=== PATIENT | female | born 1985 | race Asian ===

== ENCOUNTER 2019-09-02 12:56 | Outpatient (CLI) | payer BC ==
--- NOTE | 2019-09-02 13:25 | RAD ---
2 VIEW CHEST: Date: 09/02/19 HISTORY: Dyspnea. FINDINGS: Lungs are clear. Heart and mediastinum appear normal. Osseous structures unremarkable. IMPRESSION: Negative chest. POS: [facility]
== END 2019-09-02 12:57 | disposition home or self-care (01) ==
LOC: RAD 12:56
PROVIDERS: ATTEND Internal Medicine Pulmonary Disease
DX: R06.00 Dyspnea, unspecified (principal)
CPT/HCPCS: 71046